=== PATIENT | male | born 1950 | race Caucasian/White ===

== ENCOUNTER → 2020-03-21 | Outpatient (CLI) | payer MEDICARE, BC, OTHER ==
--- NOTE | 2020-03-21 14:24 | REP ---
INDICATION: Assess stenosis COMPARISON: None TECHNIQUE: Carotid ultrasonography was performed bilaterally FINDINGS: Right: CCA systolic: 88.8 centimeters/second CCA diastolic: 18.6 centimeters/second ICA systolic: 99.0 centimeters/second ICA diastolic: 23.3 centimeters/seconds ICA CCA ratio: 1.1 Left: CCA systolic: 94.7 centimeters/second CCA diastolic: 20.0 centimeters/second ICA systolic: 158 centimeters/second ICA diastolic: 41.6 centimeters/seconds ICA CCA ratio: 1.6 Vertebral artery: Right: Antegrade left: Antegrade Patchy echogenic material seen along the carotid arterial ibrahim IMPRESSION: According to the SRU criteria there is 50-69 percent stenosis of the left internal carotid artery and less than 50 percent stenosis of the right internal carotid artery. <Electronically signed by Dominguez Hollingsworth > 03/21/20 [id number]
--- NOTE | 2020-03-21 14:33 | REP ---
INDICATION: OCCLUSION AND STENOSIS OF BILATERAL CAROTID ARTERIES COMPARISON: None. TECHNIQUE: Real time barahona scale and Duplex Doppler evaluation of the bilateral lower extremity arterial vasculature using linear high frequency transducer. FINDINGS: Barahona scale and duplex doppler images demonstrate moderate to severe scattered plaque bilaterally triphasic waveforms are seen in the common femoral arteries bilaterally with diffuse biphasic waveforms distal to that level bilaterally. Reportedly there are bilateral bypass grafts extending from the aorta to the bilateral common femoral arteries. WILLIAM right is 0.8 and left 0.75. There is no compelling duplex Doppler sonographic evidence of hemodynamically significant stenosis bilaterally. Peak systolic velocities (cm/sec) Common femoral artery: Right 218; Left 86 Profunda femoris: Right 67; Left 118 SFA (proximal): Right 77; Left 98 SFA (mid): Right 90; Left 105 SFA (distal): Right 113; Left 84 Popliteal artery: Right 122; Left 63 WENDI (prox.): Right 94; Left 94 Tibioperoneal trunk: Right 61; Left 81 W[employer]ER [employer] TECHNICIAN (prox.): Right 88; Left 80 WAFER F[employer] TECHNICIAN (distal): Right 64; Left 63 WENDI (distal): Right 45; Left 40 IMPRESSION: Atheromatous changes with areas of narrowing but no obvious focal occlusion or stenosis. <Electronically signed by Luis Alberto Barahona > 03/21/20 [id number]
== END ==
LOC: M RAD 11:33
PROVIDERS: ATTEND Physician Assistant
DX: I71.4 Abdominal aortic aneurysm, without rupture (principal); I65.23 Occlusion and stenosis of bilateral carotid arteries; I70.213 Atherosclerosis of native arteries of extremities with intermittent claudication, bilateral legs; Z87.891 Personal history of nicotine dependence

== ENCOUNTER → 2020-03-23 | Outpatient (CLI) | payer MEDICARE, BC, OTHER ==
--- NOTE | 2020-03-23 15:04 | REP ---
INDICATION: AAA WITHOUT RUPTURE. COMPARISON: None TECHNIQUE: Noncontrast enhanced helical technique FINDINGS: There is no mediastinal or hilar adenopathy. There are no pleural or pericardial effusions. The imaged upper abdomen shows the superior portion of an aortic stent graft. The imaged osseous structures are within normal limits for the patient's age. Note is made of previous median sternotomy. Limited evaluation of the thoracic aorta shows no evidence of abnormal enlargement. An aortic dissection cannot be ruled out since no intravenous contrast was administered. Evaluation of the lung mari shows hyperexpansion and cylindrical bronchiectasis. There is biapical pleuroparenchymal scarring with pleural blebs and parenchymal bulla. There are numerable scattered 2 and 3 mm size noncalcified nodules which are too numerous to count or individually assess. There is an incidental calcified granuloma in the right upper lobe. IMPRESSION: Chronic changes and exam limitations as described above. Since are no priors for comparison consider three-month follow-up. Certainly, if an aortic dissection is of clinical concern than obtained contrast-enhanced CT angiography. <Electronically signed by Dominguez Hollingsworth > 03/23/20 [id number]
--- NOTE | 2020-03-23 15:22 | REP ---
INDICATION: AAA WITHOUT RUPTURE. COMPARISON: None TECHNIQUE: Limited noncontrast enhanced exam. FINDINGS: Limited evaluation of the solid intra-abdominal organs and gallbladder show no gross abnormalities. Limited evaluation of the abdominal aorta shows an aorto right iliac stent graft. There is no abnormal periaortic soft tissue density. There is a by femoral bypass graft. Limited evaluation of the pancreas, adrenal glands, and kidneys show no gross abnormalities. There is likely chronic bilateral perinephric stranding. Limited evaluation of the bowel loops and the mesenteries show no gross abnormalities. There is no evidence of free fluid or free air. Bone window technique throughout the examination shows chronic spinal, hip, and sacroiliac joint degenerative changes. IMPRESSION: No evidence of acute disease. Findings and limitations as described above. <Electronically signed by Dominguez Hollingsworth > 03/23/20 [id number]
== END ==
LOC: M RAD 13:52 → EDUNIT# 14:30
PROVIDERS: ATTEND Physician Assistant
DX: R91.8 Other nonspecific abnormal finding of lung field (principal); I71.4 Abdominal aortic aneurysm, without rupture; I65.23 Occlusion and stenosis of bilateral carotid arteries; I70.213 Atherosclerosis of native arteries of extremities with intermittent claudication, bilateral legs; Z87.891 Personal history of nicotine dependence